=== PATIENT | male | born 1935 | race Hispanic/Latino ===

== ENCOUNTER → 2017-10-12 | Outpatient (CLI) | payer OTHER ==
[2017-10-12 09:57] LABS: CREATININE 2.3 mg/dL (0.5-1.5)
== END | disposition home or self-care (01) ==
LOC: RAH 09:21 → MERGE 09:21
PROVIDERS: ATTEND General Practice
DX: I65.22 Occlusion and stenosis of left carotid artery (principal); I67.5 Moyamoya disease; Q25.49 Other congenital malformations of aorta
CPT/HCPCS: 36415; 70544; 70547; 70551; 82565; 84520

== ENCOUNTER → 2019-07-10 | Outpatient (CLI) | payer OTHER | END | disposition home or self-care (01) | LOC: RAH 08:19 | PROVIDERS: ATTEND Internal Medicine Gastroenterology | DX: K76.0 Fatty (change of) liver, not elsewhere classified (principal); D73.4 Cyst of spleen; I71.4 Abdominal aortic aneurysm, without rupture; I21.9 Acute myocardial infarction, unspecified | CPT/HCPCS: 76700 ==